=== PATIENT | female | born 1990 | race Caucasian/White ===

== ENCOUNTER 2017-12-13 10:39 | Outpatient (CLI) | payer MEDICAID, SELFPAY | END 2017-12-13 13:15 | disposition home or self-care (01) | LOC: M LDO 10:39 | DX: O47.1 False labor at or after 37 completed weeks of gestation (principal); Z3A.38 38 weeks gestation of pregnancy | CPT/HCPCS: 59025 ==

== ENCOUNTER → 2019-06-11 | Outpatient (CLI) | payer OTHER ==
--- NOTE | 2019-06-12 03:03 | REP ---
Clinical: Dating and viability. Technique: Transabdominal first trimester obstetrical ultrasound with color Doppler evaluation. Findings: Single live early intrauterine is appreciated. Gestational sac with yolk sac and pole identified. Marked Tree-rump length of 11 mm corresponds to 7 weeks 2 days gestational age with estimated date of delivery 01/26/2020 . heart rate equals 128 beats per minute. No gross abnormalities are identified. Impression: Single live early intrauterine at 7 weeks 2 days gestational age. Complete anatomical assessment should be performed and 19-20 weeks. Electronically Signed by Sanchez Patel MD 06/12/2019 02:55 A
== END ==
LOC: M RAD 16:14
DX: Z36.89 Encounter for other specified antenatal screening (principal); Z3A.01 Less than 8 weeks gestation of pregnancy